=== PATIENT | male | born 1990 | race American Indian/Alaskan Native ===

== ENCOUNTER 2017-02-11 16:17 | Emergency (ER) | payer SELFPAY ==
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
[2017-02-11] MEDS ORDERED: ceFAZolin 2 GM in NACL 0.9% 100 ML IV ONE (19:00)
[2017-02-11] MEDS ORDERED: ZOFRAN IV ONE (19:00)
[2017-02-11] MEDS ORDERED: MORPHINE IV ONE ×2 (19:00→21:22)
[2017-02-11] MEDS ORDERED: TENIVAC IM ONE (19:00)
[2017-02-11] MEDS ORDERED: NACL 0.9% 1000 ML 1,000 ML IV ONE (19:05)
[2017-02-11] MEDS ORDERED: BOOSTRIX IM ONE (19:14)
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
[2017-02-11 22:22] VITALS: BP 136/77
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
== END 2017-02-11 22:22 | disposition home or self-care (01) ==
LOC: ED 16:17
DX: S02.2XXA Fracture of nasal bones, initial encounter for closed fracture (principal); F12.10 Cannabis abuse, uncomplicated; Y09 Assault by unspecified means; Y93.9 Activity, unspecified; Y99.9 Unspecified external cause status; Y92.488 Other paved roadways as the place of occurrence of the external cause
CPT/HCPCS: 70450; 70480; 71110; 90471; 90715; 96365; 96375; 96376; 99284; J0690; J2270; J2405; J7030; 90714

== ENCOUNTER 2018-01-14 09:46 | Outpatient (CLI) | payer OTHER ==
[2018-01-14 09:59] LABS: Hematocrit 30.8 % (35.5-45.6); Hemoglobin 11.1 gm/dl (11.8-15.2); Mean Corpuscular HGB Conc 36 % (32-34); Mean Corpuscular Hemoglobin 32 pg (28-32); Mean Corpuscular Volume 90 fl (84-94); Platelet Count 299 K/mm3 (140-440); Red Blood Count 3.44 M/mm3 (3.65-5.03)
[2018-01-14 10:00] LABS: Red Cell Distribution Width 20.8 % (13.2-15.2)
[2018-01-14 10:38] LABS: Anisocytosis 2+; Band Neutrophils # (Manual) 0.1 K/mm3; Basophils % (Manual) 0 % (0.0-1.8); Ovalocytes 1+; Poikilocytosis 2+; Sickle Cells 2+; Total Cells Counted 100
[2018-01-14 10:39] LABS: Large Platelets Rare; Target Cells 1+; Tear Drop Cells Rare
== END 2018-01-14 09:47 | disposition home or self-care (01) ==
LOC: LAB 09:46
PROVIDERS: ATTEND Internal Medicine
DX: J45.909 Unspecified asthma, uncomplicated (principal); D64.9 Anemia, unspecified; D57.1 Sickle-cell disease without crisis; R52 Pain, unspecified
CPT/HCPCS: 36415; 85007; 85025

== ENCOUNTER 2021-07-08 14:36 | Inpatient (IN) | payer SELFPAY ==
--- NOTE | 2021-07-08 15:38 | Emergency Department Report ---
ED General Adult HPI - General Chief complaint: Sickle Cell Crisis Stated complaint: CHEST PAIN SOB PUI?: No Time Seen by Provider: 07/08/21 14:55 Source: patient, RN notes reviewed Mode of arrival: Ambulatory Limitations: No Limitations - History of Present Illness Initial comments: The patient is a 31-year-old gentleman. He reports a history of sickle cell disease. The patient presents to the ER with 1 to 2 days of central and bilateral chest pain. It is intermittent. It increases with deep inspiration. Positive low-grade fever. No vomiting or diaphoresis. No travel, surgery, immobilization, leg pain or leg swelling. The patient reports that he feels like sickle cell pain is acting up as well. He reports leg pain, and lower back pain. Triggers include cold weather and change of seasons. Denies travel, surg andrae, immobilization. Does not have a personal family history of DVT/PE/CAD. Patient reports that his symptoms today are not similar to prior episodes of sickle cell pain in his chest. He reports he does have a history of acute chest, and does not feel like this is similar to his prior episode of acute chest syndrome. Reports that he has his gallbladder, and spleen. -: Gradual, hour(s) Location: chest Radiation: non-radiation Quality: aching Consistency: constant Improves with: medication, rest Worsens with: movement, other (Inspiration) - Related Data Previous Rx's Medication Instructions Recorded Last Taken Type Folic Acid [Folvite] 1 mg PO QDAY #30 tablet 01/02/14 Unknown Rx Oxycodone HCl/Acetaminophen 1 each PO Q6HR PRN #20 tablet 01/02/14 Unknown Rx [Percocet 7.5-325 mg] Amoxicillin [Amoxicillin TAB] 875 mg PO BID #20 tablet 02/11/17 Unknown Rx HYDROcodone/APAP 5-325 [[place] 1 each PO Q6HR PRN #12 tablet 02/11/17 Unknown Rx 5/325] Ibuprofen [Motrin 800 MG tab] 800 mg PO Q8HR PRN #30 tablet 02/11/17 Unknown Rx Allergies Allergy/AdvReac Type Severity Reaction Status Date / Time No Known Allergies Allergy Unverified 01/02/14 08:21 ED Review of Systems ROS: Stated complaint: CHEST PAIN SOB Other details as noted in HPI Constitutional: malaise. denies: fever, weakness Eyes: denies: eye discharge ENT: denies: epistaxis Respiratory: shortness of breath Cardiovascular: chest pain Gastrointestinal: denies: abdominal pain, nausea, vomiting, diarrhea Genitourinary: denies: urgency, dysuria Musculoskeletal: back pain, arthralgia, myalgia Neurological: weakness. denies: headache Psychiatric: anxiety Hematological/Lymphatic: denies: easy bleeding ED Past Medical Hx - Past Medical History Previous Medical History?: Yes Hx Sickle Cell Disease: Yes - Social History Smoking Status: Never Smoker Substance Use Type: Marijuana - Medications Home Medications: Home Medications Medication Instructions Recorded Confirmed Last Taken Type Folic Acid [Folvite] 1 mg PO QDAY #30 tablet 01/02/14 Unknown Rx Oxycodone HCl/Acetaminophen 1 each PO Q6HR PRN #20 tablet 01/02/14 Unknown Rx [Percocet 7.5-325 mg] Amoxicillin [Amoxicillin TAB] 875 mg PO BID #20 tablet 02/11/17 Unknown Rx HYDROcodone/APAP 5-325 [[place] 1 each PO Q6HR PRN #12 tablet 02/11/17 Unknown Rx 5/325] Ibuprofen [Motrin 800 MG tab] 800 mg PO Q8HR PRN #30 tablet 02/11/17 Unknown Rx ED Physical Exam - General Limitations: No Limitations General appearance: alert, in no apparent distress - Head Head exam: Present: atraumatic, normocephalic - Eye Eye exam: Present: normal appearance, EOMI. Absent: nystagmus - ENT ENT exam: Present: normal exam, normal orophraynx, mucous membranes moist, normal external ear exam - Neck Neck exam: Present: normal inspection, full ROM. Absent: tenderness, meningismus - Respiratory Respiratory exam: Present: normal lung sounds bilaterally, chest wall tenderness. Absent: respiratory distress, wheezes, rales, rhonchi, stridor, decreased breath sounds - Cardiovascular Cardiovascular Exam: Present: regular rate, normal rhythm, normal heart sounds. Absent: bradycardia, tachycardia, irregular rhythm, systolic murmur, diastolic murmur, rubs, gallop - GI/Abdominal GI/Abdominal exam: Present: soft. Absent: distended, tenderness, guarding, rebound, rigid, pulsatile mass - Rectal Rectal exam: Present: deferred - Extremities Exam Extremities exam: Present: normal inspection, full ROM, other (2+ pulses noted in the bilateral upper and lower extremities. The pelvis is stable. There is long bony tenderness. The muscular compartments are soft.). Absent: pedal edema, calf tenderness - Back Exam Back exam: Present: normal inspection, full ROM, muscle spasm, paraspinal tenderness. Absent: tenderness, CVA tenderness (R), CVA tenderness (L), vertebral tenderness - Neurological Exam Neurological exam: Present: alert, oriented X3, other (No facial droop. Tongue midline. Extraocular movements intact bilaterally. Facial sensation intact to light touch in V1, V2, V3 distribution bilaterally. 5 and a 5 strength in 4 ext remities. Sensation intact to light touch in 4 extremities.). Absent: motor sensory deficit - Psychiatric Psychiatric exam: Present: anxious - Skin Skin exam: Present: warm, dry, intact, normal color. Absent: rash ED Course Vital Signs 07/08/21 07/08/21 07/08/21 14:42 15:03 15:46 Temperature Pulse Rate 72 65 Respiratory 13 16 Rate Blood Pressure 119/73 O2 Sat by Pulse 98 96 97 Oximetry 07/08/21 07/08/21 07/08/21 16:00 17:30 18:30 Temperature Pulse Rate 73 83 84 Respiratory 12 14 24 Rate Blood Pressure 118/77 122/79 117/71 O2 Sat by Pulse 94 95 93 Oximetry 07/08/21 19:06 Temperature 99.1 F Pulse Rate Respiratory Rate Blood Pressure O2 Sat by Pulse Oximetry - Reevaluation(s) Reevaluation #1: 07/08/21 19:13 Differential diagnosis, including but not limited to: Sickle cell crisis, sickle cell anemia, pneumonia, acute chest syndrome, pu lmonary embolism Myocarditis, pericarditis, acute coronary syndrome Assessment and plan: 31-year-old gentleman with low-grade temperature, but no hypoxia, no focal pulmonary findings, with sickle cell pain, and chest pain. He has an elevated reticulocyte count. His D-dimer is elevated. History of sickle cell places patient at risk for pulmonary embolism. Troponin negative x1. Patient low risk for major adverse cardiac event as per heart score. He required multiple rounds of hydromorphone. He meets criteria for admission hospitalization secondary to sickle cell pain crisis, anemia, elevated reticulocyte count. We will obtain CT scan of the chest and rule out for pulmonary embolism versus pneumonia versus acute chest syndrome. Discussed with patient plan of care for admission. He is agreeable to this plan of care. 07/08/21 19:14 07/08/21 19:57 CT scan of the chest suggest right lower lobe atelectasis versus infiltrate. Patient ruling in for systemic inflammatory response syndrome, manifest by heart rate greater than 90, leukocytosis. Patient will be placed on nasal cannula oxygen, ceftriaxone, azithromycin, and fluids. Dr Castro to endorse admission to overnight hospitalist, Dr Ana Blackwell 07/08/21 20:00 ED Medical Decision Making - Lab Data Result diagrams: 07/08/21 15:49 07/08/21 15:49 Vital Signs 07/08/21 07/08/21 07/08/21 14:42 15:03 15:46 Temperature Pulse Rate 72 65 Respiratory 13 16 Rate Blood Pressure 119/73 O2 Sat by Pulse 98 96 97 Oximetry 07/08/21 07/08/21 07/08/21 16:00 17:30 18:30 Temperature Pulse Rate 73 83 84 Respiratory 12 14 24 Rate Blood Pressure 118/77 122/79 117/71 O2 Sat by Pulse 94 95 93 Oximetry 07/08/21 19:06 Temperature 99.1 F Pulse Rate Respiratory Rate Blood Pressure O2 Sat by Pulse Oximetry Lab Results 07/08/21 07/08/21 07/08/21 Range/Units 15:49 15:49 15:49 WBC 15.4 H (4.5-11.0) K/mm3 RBC 2.82 L (3.65-5.03) M/mm3 Hgb 9.2 L (11.8-15.2) gm/dl Hct 26.1 L (35.5-45.6) % MCV 93 (84-94) fl MCH 33 H (28-32) pg MCHC 35 H (32-34) % RDW 21.8 H (13.2-15.2) % Plt Count 383 (140-440) K/mm3 Lymph % (Auto) 21.3 (13.4-35.0) % [place] % (Auto) 9.7 H (0.0-7.3) % Eos % (Auto) 1.4 (0.0-4.3) % Baso % (Auto) 0.5 (0.0-1.8) % Lymph # (Auto) 3.3 (1.2-5.4) K/mm3 [place] # (Auto) 1.5 H (0.0-0.8) K/mm3 Eos # (Auto) 0.2 (0.0-0.4) K/mm3 Baso # (Auto) 0.1 (0.0-0.1) K/mm3 Seg Neutrophils % 67.1 (40.0-70.0) % Seg Neutrophils # 10.3 H (1.8-7.7) K/mm3 Percent Retic 9.76 H (0.78-2.58) % PT 13.7 (12.2-14.9) Sec. INR 0.95 (0.87-1.13) D-Dimer 1220.67 H (0-234) ng/mlDDU Sodium 140 (137-145) mmol/L Potassium 4.4 (3.6-5.0) mmol/L Chloride 102.7 (98-107) mmol/L Carbon Dioxide 27 (22-30) mmol/L Anion Gap 15 mmol/L BUN 6 L (9-20) mg/dL Creatinine 0.7 L (0.8-1.3) mg/dL Estimated GFR > 60 ml/min BUN/Creatinine Ratio 9 % Glucose 85 (75-100) mg/dL Calcium 9.1 (8.4-10.2) mg/dL Total Bilirubin 2.40 H (0.1-1.2) mg/dL Direct Bilirubin 0.5 H (0-0.2) mg/dL Indirect Bilirubin 1.9 mg/dL AST 32 (5-40) units/L ALT 41 (7-56) units/L Alkaline Phosphatase 79 (35-129) units/L Troponin T < 0.010 (0.00-0.029) ng/mL Total Protein 8.0 (6.3-8.2) g/dL Albumin 4.0 (3.9-5) g/dL Albumin/Globulin Ratio 1.0 % - EKG Data -: EKG Interpreted by Al EKG shows normal: sinus rhythm Rate: normal - EKG Data When compared to previous EKG there are: previous EKG unavailable 07/08/21 19:12 The EKG is interpreted at 15: 45 Sinus rhythm, rate 68 bpm. Normal axis, normal intervals, right bundle branch block, QTC 477 ms. This is an abnormal EKG. This is not a STEMI. There is no prior available for comparison. - Radiology Data Radiology results: pending, report reviewed, image reviewed [facility] [address] [id number] Cat Scan Report Signed Patient: LUL PUENTE MR#: [id number] : 1990 Acct:[id number] Age/Sex: 31 / M ADM Date: 07/08/21 Loc: ED Attending Dr: Ordering Physician: HILDA RODRIGUES MD Date of Service: 07/08/21 Procedure(s): CT angio chest Accession Number(s): [id number] cc: HILDA RODRIGUES MD CTA CHEST WITH CONTRAST INDICATION / CLINICAL INFORMATION: Acute chest pain.. TECHNIQUE: Axial CT images were obtained through the chest after injection of IV contrast. 3 plane MIP and/or 3D reconstructions were produced. All CT scans at this location are performed using CT dose reduction for ALARA by means of automated exposure control. COMPARISON: None available. FINDINGS: PULMONARY ARTERIES: No pulmonary emboli. THORACIC AORTA: No significant abnormality. HEART: No significant abnormality. CORONARY ARTERY CALCIFICATION: None. MEDIASTINUM / RILEY: There is a cyst in the left upper mediastinum. PLEURA: No pleural effusion. No pneumothorax. LUNGS: There are some minimal peripheral parenchymal opacity in the right lower lobe which could represent atelectasis or atypical pneumonia ADDITIONAL FINDINGS: None. UPPER ABDOMEN: No acute findings. SKELETAL STRUCTURES: No significant osseous abnormality. IMPRESSION: 1. No CT evidence for pulmonary embolism. 2. There is minimal airspace opacity in the right lower lobe which could represent atelectasis or atypical pneumonia. Signer Name: Talha Durand MD Signed: 07/08/2021 7:48 PM Workstation Name: [id number] Transcribed By: Dictated By: Talha Durand MD Electronically Authenticated By: Talha Durand MD Signed Date/Time: 07/08/211947 DD/ 41 Critical care attestation.: If time is entered above; I have spent that time in minutes in the direct care of this critically ill patient, excluding procedure time. ED Disposition Clinical Impression: Acute chest pain, Acute sickle cell crisis, Pulmonary infiltrate Disposition: 09 ADMITTED INPATIENT Is pt being admited?: Yes Does the pt Need Aspirin: No Condition: Good Instructions: Chest Pain (ED) Referrals: PRIMARY CARE,MD [Primary Care Provider] - 3-5 Days Heart Score - HEART Score History: Slightly suspicious EKG: Non-specific Age: < 45 Risk factors: 1-2 risk factors Troponin: < normal limit HEART Score: 2 - EKG Read Time Time EKG Completed: 15:45 EKG Read Time: 15:45 - Critical Actions Critical Actions: 0-3 pts:0.9-1.7%risk of adverse cardiac event.Candidate for discharge
[2021-07-08] MEDS ORDERED: diphenhydrAMINE 25 MG CAP PO ONE (15:39)
[2021-07-08] MEDS ORDERED: HYDROmorphone 1 MG/1 ML INJ IV ONE ×3 (15:39→18:21)
[2021-07-08] MEDS ORDERED: ONDANSETRON 4 MG/2 ML INJ IV ONE (15:39)
[2021-07-08] MEDS ORDERED: LACTATED RINGERS 1,000 ML IV ONE (15:39)
[2021-07-08 16:14] LABS: Basophils # (Auto) 0.1 K/mm3 (0.0-0.1); Basophils % (Auto) 0.5 % (0.0-1.8); Eosinophils # (Auto) 0.2 K/mm3 (0.0-0.4); Eosinophils % (Auto) 1.4 % (0.0-4.3); Hematocrit 26.1 % (35.5-45.6); Hemoglobin 9.2 gm/dl (11.8-15.2); Lymphocytes # (Auto) 3.3 K/mm3 (1.2-5.4); Lymphocytes % (Auto) 21.3 % (13.4-35.0); Mean Corpuscular HGB Conc 35 % (32-34); Mean Corpuscular Volume 93 fl (84-94); Monocytes # (Auto) 1.5 K/mm3 (0.0-0.8); Monocytes % (Auto) 9.7 % (0.0-7.3); Platelet Count 383 K/mm3 (140-440); Red Blood Count 2.82 M/mm3 (3.65-5.03)
[2021-07-08 16:19] LABS: Red Cell Distribution Width 21.8 % (13.2-15.2)
[2021-07-08 16:22] LABS: INR 0.95 (0.87-1.13)
[2021-07-08 16:31] LABS: Alanine Aminotransferase 41 units/L (7-56); Bilirubin,Direct 0.5 mg/dL (0-0.2); Blood Urea Nitrogen 6 mg/dL (9-20); Calcium 9.1 mg/dL (8.4-10.2); Hemolysis Index 15
[2021-07-08 16:34] LABS: BUN/Creatinine Ratio 9
--- NOTE | 2021-07-08 19:53 | Cat Scan Report ---
CTA CHEST WITH CONTRAST INDICATION / CLINICAL INFORMATION: Acute chest pain.. TECHNIQUE: Axial CT images were obtained through the chest after injection of IV contrast. 3 plane WI P and/or 3D reconstructions were produced. All CT scans at this location are performed using CT dose reduction for ALARA by means of automated exposure control. COMPARISON: None available. FINDINGS: PULMONARY ARTERIES: No pulmonary emboli. THORACIC AORTA: No significant abnormality. HEART: No significant abnormality. CORONARY ARTERY CALCIFICATION: None. MEDIASTINUM / RILEY: There is a cyst in the left upper mediastinum. PLEURA: No pleural effusion. No pneumothorax. LUNGS: There are some minimal peripheral parenchymal opacity in the right lower lobe which could repr esent atelectasis or atypical pneumonia ADDITIONAL FINDINGS: None. UPPER ABDOMEN: No acute findings. SKELETAL STRUCTURES: No significant osseous abnormality. IMPRESSION: 1. No CT evidence for pulmonary embolism. 2. There is minimal airspace opacity in the right lower lobe which could represent atelectasis or aty pical pneumonia. Signer Name: Talha Durand MD Signed: 07/08/2021 7:48 PM Workstation Name: [id number]
[2021-07-08] MEDS ORDERED: ACETAMINOPHEN 325 MG TAB PO ONE (19:55)
[2021-07-08] MEDS ORDERED: AZITHROMYCIN/NS 500 MG/250 ML 500 MG/250 ML BAG IV ONE (19:55)
[2021-07-08] MEDS ORDERED: cefTRIAXone/NS 1 GM/50 ML 1 GM/50 ML BAG IV ONE (19:55)
[2021-07-08] MEDS ORDERED: SODIUM CHLORIDE 0.9% 1000 ML 1,000 ML IV ONE (19:56)
[2021-07-08] MEDS ORDERED: ASPIRIN 81 MG TAB CHEW PO ONE (20:02)
--- NOTE | 2021-07-08 20:15 | XRay Report ---
CHEST 1 VIEW 07/08/2021 7:46 PM INDICATION / CLINICAL INFORMATION: Acute chest pain. COMPARISON: None available. FINDINGS: SUPPORT DEVICES: None. HEART / MEDIASTINUM: The heart size and pulmonary vasculature are normal for technique. The aorta is normal in caliber. LUNGS / PLEURA: No significant pulmonary or pleural abnormality. No pneumothorax. ADDITIONAL FINDINGS: No significant additional findings. IMPRESSION: No acute findings. Signer Name: Jass Stein MD Signed: 07/08/2021 8:11 PM Workstation Name: [id number]
[2021-07-08] MEDS ORDERED: NALOXONE 0.4 MG/1 ML INJ IV PRN (20:32)
[2021-07-08] MEDS ORDERED: MAGNESIUM HYDROXIDE (MOM) ORAL LIQD UDC PO PRN (20:32)
[2021-07-08] MEDS ORDERED: ONDANSETRON 4 MG/2 ML INJ IV PRN ×2 (20:32→20:36)
[2021-07-08] MEDS ORDERED: ALUM-MAG HYDROXIDE-SIMETHICONE 200-200-20MG/5ML ORAL LIQD 30 ML PO PRN (20:32)
[2021-07-08] MEDS ORDERED: METOCLOPRAMIDE 10 MG/2 ML INJ IV PRN (20:32)
[2021-07-08] MEDS ORDERED: oxyCODONE /ACETAMINOPHEN 5-325MG TAB PO PRN (20:32)
[2021-07-08] MEDS ORDERED: SENNOSIDES 8.6 MG TAB PO PRN (20:32)
[2021-07-08] MEDS ORDERED: IBUPROFEN 600 MG TAB PO PRN (20:36)
[2021-07-08] MEDS ORDERED: ACETAMINOPHEN 325 MG TAB PO PRN (20:36)
--- NOTE | 2021-07-08 20:41 | History and Physical Report ---
History of Present Illness Date of examination: 07/08/21 Date of admission: 07/08/21 Chief complaint: Chest pain History of present illness: Male patient seen in ED at bedside. Patient has a past medical history of sickle cell disease. He presented to the emergency room and sickle cell crisis. At the time of assessment patient reports pain level of 9/10. He complains of bilateral chest pain shoulder pain bilateral leg and back pain. Patient admits tobacco use but denies illicit drug use. Reviewed lab values and radiology report. CT of the chest done to rule out PECT negative for pulmonary emboli. There is a minimal airspace opacity likely secondary to pneumonia. chest x-ray done no acute finding. Past History Past Medical History: No medical history Past Surgical History: No surgical history Social history: lives with family, smoking Family history: no significant family history Medications and Allergies Allergies Allergy/AdvReac Type Severity Reaction Status Date / Time No Known Allergies Allergy Unverified 01/02/14 08:21 Home Medications Medication Instructions Recorded Confirmed Last Taken Type Folic Acid [Folvite] 1 mg PO QDAY #30 tablet 01/02/14 Unknown Rx Oxycodone HCl/Acetaminophen 1 each PO Q6HR PRN #20 tablet 01/02/14 Unknown Rx [Percocet 7.5-325 mg] Amoxicillin [Amoxicillin TAB] 875 mg PO BID #20 tablet 02/11/17 Unknown Rx HYDROcodone/APAP 5-325 [[place] 1 each PO Q6HR PRN #12 tablet 02/11/17 Unknown Rx 5/325] Ibuprofen [Motrin 800 MG tab] 800 mg PO Q8HR PRN #30 tablet 02/11/17 Unknown Rx Active Meds: Active Medications Azithromycin (Zithromax/Ns) 500 mg in 250 mls @ 250 mls/hr IV ONCE ONE; Protocol Stop: 07/08/21 20:54 Sodium Chloride (Nacl 0.9% 1000 Ml) 1,000 mls @ 999 mls/hr IV BOLUS ONE Stop: 07/08/21 20:56 Review of Systems Cardiovascular: chest pain Gastrointestinal: no abdominal pain, no melena Genitourinary Male: no hematuria Rectal: no hemorrhoids Musculoskeletal: low back pain, leg numbness/tingling Integumentary: no rash, no pruritis, no redness Hematologic/Lymphatic: no easy bruising, no easy bleeding, no lymphadenopathy, no lymphedema Allergic/Immunologic: no urticaria Exam - Constitutional Vitals: Temp Pulse Resp BP Pulse Ox 99.1 F 84 24 117/71 93 07/08/21 19:06 07/08/21 18:30 07/08/21 18:30 07/08/21 18:30 07/08/21 18:30 General appearance: Present: mild distress, well-nourished - EENT Eyes: Present: PERRL ENT: hearing intact, clear oral mucosa - Neck Neck: Present: supple, normal ROM - Respiratory Respiratory effort: normal Respiratory: bilateral: CTA - Cardiovascular Heart Sounds: Present: S1 & S2. Absent: rub, click - Extremities Extremities: pulses symmetrical, No edema Peripheral Pulses: within normal limits - Abdominal General gastrointestinal: Present: soft, non-tender, non-distended, normal bowel sounds Male genitourinary: Present: normal - Integumentary Integumentary: Present: clear, warm, dry - Musculoskeletal Musculoskeletal: gait normal, strength equal bilaterally - Psychiatric Psychiatric: appropriate mood/affect, intact judgment & insight, cooperative - Neurologic Neurologic: CNII-XII intact, moves all extremities - Allied Health Allied health notes reviewed: nursing HEART Score - HEART Score EKG: Non-specific Age: < 45 Risk factors: 1-2 risk factors Troponin: Troponin T < 0.010 ng/mL (0.00-0.029) 07/08/21 15:49 Troponin: < normal limit - Critical Actions Critical Actions: 0-3 pts:0.9-1.7%risk of adverse cardiac event.Candidate for discharge Results - Labs CBC & Chem 7: 07/08/21 15:49 07/08/21 15:49 Labs: Abnormal lab results 07/08/21 07/08/21 07/08/21 Range/Units 15:49 15:49 15:49 WBC 15.4 H (4.5-11.0) K/mm3 RBC 2.82 L (3.65-5.03) M/mm3 Hgb 9.2 L (11.8-15.2) gm/dl Hct 26.1 L (35.5-45.6) % MCH 33 H (28-32) pg MCHC 35 H (32-34) % RDW 21.8 H (13.2-15.2) % [place] % (Auto) 9.7 H (0.0-7.3) % [place] # (Auto) 1.5 H (0.0-0.8) K/mm3 Seg Neutrophils # 10.3 H (1.8-7.7) K/mm3 Percent Retic 9.76 H (0.78-2.58) % D-Dimer 1220.67 H (0-234) ng/mlDDU BUN 6 L (9-20) mg/dL Creatinine 0.7 L (0.8-1.3) mg/dL Total Bilirubin 2.40 H (0.1-1.2) mg/dL Direct Bilirubin 0.5 H (0-0.2) mg/dL Assessment and Plan - Patient Problems (1) Acute chest pain Current Visit: Yes Status: Acute Plan to address problem: CT of the chest donenegative for pulmonary embolism Pain management as needed (2) Acute sickle cell crisis Current Visit: Yes Status: Acute Plan to address problem: Continue IV hydration (3) Pulmonary infiltrate Current Visit: Yes Status: Acute Plan to address problem: CT of the chest positive for lung opacity right lower lobe Continue empiric antibiotics (4) Leukocytosis (leucocytosis) Current Visit: Yes Status: Acute Plan to address problem: Likely reactive/pneumonia Blood culture x2 and continue empiric antibiotics Monitor WBC. (5) Anemia Current Visit: Yes Status: Acute Plan to address problem: Continue folic acid and multivitamin Monitor H&H-we will transfuse packed red blood cells if H&H is less than 7
[2021-07-08] MEDS: FAMOTIDINE 20 MG/2 ML INJ IV SCH (22:55)
[2021-07-08] MEDS: FOLIC ACID 1 MG TAB PO SCH (22:57)
[2021-07-08] MEDS: MORPHINE 4 MG/1 ML INJ IV PRN (23:09)
[2021-07-08] MEDS: SODIUM CHLORIDE 0.9% 1000 ML 1,000 ML IV SCH (23:09)
[2021-07-09] MEDS: MORPHINE 2 MG/1 ML INJ IV PRN ×4 (02:52→17:51)
[2021-07-09] MEDS ORDERED: cefTRIAXone/NS 2 GM/100 ML 2 GM/100 ML BAG IV SCH (08:00)
[2021-07-09 08:06] LABS: Basophils # (Auto) 0.1 K/mm3 (0.0-0.1); Basophils % (Auto) 0.8 % (0.0-1.8); Eosinophils # (Auto) 0.1 K/mm3 (0.0-0.4); Eosinophils % (Auto) 0.4 % (0.0-4.3); Hematocrit 25.5 % (35.5-45.6); Hemoglobin 8.7 gm/dl (11.8-15.2); Lymphocytes # (Auto) 2.1 K/mm3 (1.2-5.4); Lymphocytes % (Auto) 12.8 % (13.4-35.0); Mean Corpuscular HGB Conc 34 % (32-34); Mean Corpuscular Volume 93 fl (84-94); Monocytes # (Auto) 1.6 K/mm3 (0.0-0.8); Monocytes % (Auto) 9.9 % (0.0-7.3); Platelet Count 382 K/mm3 (140-440); Red Blood Count 2.74 M/mm3 (3.65-5.03)
[2021-07-09 08:07] LABS: Red Cell Distribution Width 20.7 % (13.2-15.2)
[2021-07-09 08:32] LABS: Alanine Aminotransferase 32 units/L (7-56); Albumin 3.9 g/dL (3.9-5); Blood Urea Nitrogen 4 mg/dL (9-20); Calcium 8.8 mg/dL (8.4-10.2); Hemolysis Index 12
[2021-07-09 08:34] LABS: BUN/Creatinine Ratio 6
[2021-07-09] MEDS: FOLIC ACID 1 MG TAB PO SCH (09:42)
[2021-07-09] MEDS: FAMOTIDINE 20 MG/2 ML INJ IV SCH ×2 (09:42→21:38)
[2021-07-09] MEDS: AZITHROMYCIN/NS 500 MG/250 ML 500 MG/250 ML BAG IV SCH (09:42)
[2021-07-09] MEDS: MULTIVITAMINS ,THERAPEUTIC TAB PO SCH (09:42)
[2021-07-09] MEDS: cefTRIAXone/NS 2 GM/100 ML 2 GM/100 ML BAG IV SCH (09:42)
--- NOTE | 2021-07-09 13:14 | Progress Note ---
Assessment and Plan Assessment and plan: -- atypical chest pain Current Visit: Yes Status: Acute CT of the chest donenegative for pulmonary embolism Pain management as needed -- Acute sickle cell crisis Current Visit: Yes Status: Acute Continue IV hydration Oxygen titrate O2 sats to more than 90% Pain medications, IV fluids and supportive care Reticulocyte count 9.7 --PUI/high suspicion for COVID-19[unvaccinated] Current Visit: Yes Status: Acute [place] PCR test done, pending report --Atypical pneumonia Current Visit: Yes Status: Acute Continue empiric antibiotics Supportive care with 2 L NC oxygen and IV fluids COVID-19 test is negative --Leukocytosis (leucocytosis) Current Visit: Yes Status: Acute Probably due to pneumonia, treat the underlying cause Follow cultures --Sickle cell anemia; Current Visit: Yes Status: Acute Monitor H&H, transfuse PRBC as needed --DVT prophylaxis Subcu Lovenox We will closely monitor the patient and adjust the management as needed Plan of care reviewed with the patient and his nurse Possible discharge in 1 to 2 days if stable 07/09/2021 ; follow [place] PCR test, follow clinically Home O2 evaluation History Interval history: I have seen and examined the patient at the bedside Patient's chart and medications reviewed Patient complains of back and lower extremity pain Admitted with sickle cell painful crisis Afebrile Hospitalist Physical - Constitutional Vitals: Temp Pulse Resp BP Pulse Ox 98.3 F 77 20 119/75 98 07/09/21 04:39 07/09/21 04:39 07/09/21 08:49 07/09/21 04:39 07/09/21 09:55 General appearance: Present: mild distress, well-nourished - EENT Eyes: Present: PERRL, EOM intact - Neck Neck: Present: supple, normal ROM - Respiratory Respiratory effort: normal Respiratory: bilateral: diminished, rhonchi, negative: rales, wheezing - Cardiovascular Rhythm: regular Heart Sounds: Present: S1 & S2 - Extremities Extremities: no ischemia, No edema - Abdominal General gastrointestinal: soft, non-tender, non-distended, normal bowel sounds - Integumentary Integumentary: Present: clear, warm - Psychiatric Psychiatric: appropriate mood/affect, cooperative - Neurologic Neurologic: CNII-XII intact, moves all extremities HEART Score - HEART Score EKG: Non-specific Age: < 45 Risk factors: 1-2 risk factors Troponin: Troponin T < 0.010 ng/mL (0.00-0.029) 07/08/21 15:49 Troponin: < normal limit - Critical Actions Critical Actions: 0-3 pts:0.9-1.7%risk of adverse cardiac event.Candidate for discharge Results - Labs CBC & Chem 7: 07/09/21 06:50 07/09/21 07:30 Labs: Laboratory Last Values WBC 16.4 K/mm3 (4.5-11.0) H 07/09/21 06:50 RBC 2.74 M/mm3 (3.65-5.03) L 07/09/21 06:50 Hgb 8.7 gm/dl (11.8-15.2) L 07/09/21 06:50 Hct 25.5 % (35.5-45.6) L 07/09/21 06:50 MCV 93 fl (84-94) 07/09/21 06:50 MCH 32 pg (28-32) 07/09/21 06:50 MCHC 34 % (32-34) 07/09/21 06:50 RDW 20.7 % (13.2-15.2) H 07/09/21 06:50 Plt Count 382 K/mm3 (140-440) 07/09/21 06:50 Lymph % (Auto) 12.8 % (13.4-35.0) L 07/09/21 06:50 [place] % (Auto) 9.9 % (0.0-7.3) H 07/09/21 06:50 Eos % (Auto) 0.4 % (0.0-4.3) 07/09/21 06:50 Baso % (Auto) 0.8 % (0.0-1.8) 07/09/21 06:50 Lymph # (Auto) 2.1 K/mm3 (1.2-5.4) 07/09/21 06:50 [place] # (Auto) 1.6 K/mm3 (0.0-0.8) H 07/09/21 06:50 Eos # (Auto) 0.1 K/mm3 (0.0-0.4) 07/09/21 06:50 Baso # (Auto) 0.1 K/mm3 (0.0-0.1) 07/09/21 06:50 Seg Neutrophils % 76.1 % (40.0-70.0) H 07/09/21 06:50 Seg Neutrophils # 12.5 K/mm3 (1.8-7.7) H 07/09/21 06:50 Percent Retic 9.76 % (0.78-2.58) H 07/08/21 15:49 PT 13.7 Sec. (12.2-14.9) 07/08/21 15:49 INR 0.95 (0.87-1.13) 07/08/21 15:49 D-Dimer 1220.67 ng/mlDDU (0-234) H 07/08/21 15:49 Sodium 137 mmol/L (137-145) 07/09/21 07:30 Potassium 3.9 mmol/L (3.6-5.0) 07/09/21 07:30 Chloride 100.0 mmol/L (98-107) 07/09/21 07:30 Carbon Dioxide 25 mmol/L (22-30) 07/09/21 07:30 Anion Gap 16 mmol/L 07/09/21 07:30 BUN 4 mg/dL (9-20) L 07/09/21 07:30 Creatinine 0.7 mg/dL (0.8-1.3) L 07/09/21 07:30 Estimated GFR > 60 ml/min 07/09/21 07:30 BUN/Creatinine Ratio 6 % 07/09/21 07:30 Glucose 103 mg/dL (75-100) H 07/09/21 07:30 Hemoglobin A1c 3.4 % (4-6) L 07/08/21 15:49 Lactic Acid 0.80 mmol/L (0.7-2.0) 07/08/21 20:25 Calcium 8.8 mg/dL (8.4-10.2) 07/09/21 07:30 Total Bilirubin 2.40 mg/dL (0.1-1.2) H 07/09/21 07:30 Direct Bilirubin 0.5 mg/dL (0-0.2) H 07/08/21 15:49 Indirect Bilirubin 1.9 mg/dL 07/08/21 15:49 AST 28 units/L (5-40) 07/09/21 07:30 ALT 32 units/L (7-56) 07/09/21 07:30 Alkaline Phosphatase 77 units/L (35-129) 07/09/21 07:30 Total Creatine Kinase 70 units/L (55-170) 07/08/21 19:16 Troponin T < 0.010 ng/mL (0.00-0.029) 07/08/21 15:49 Total Protein 7.7 g/dL (6.3-8.2) 07/09/21 07:30 Albumin 3.9 g/dL (3.9-5) 07/09/21 07:30 Albumin/Globulin Ratio 1.0 % 07/09/21 07:30 Microbiology: Microbiology 07/08/21 20:25 Peripheral/Venous Blood Culture - Preliminary Culture in Progress 07/08/21 20:25 Peripheral/Venous Blood Culture - Preliminary Culture in Progress Alanis/IV: Voiding Method Toilet Active Medications - Current Medications Current Medications: Generic Name Dose Route Start Last Admin Trade Name Freq PRN Reason Stop Dose Admin Acetaminophen 650 mg 07/08/21 20:36 Acetaminophen 325 Mg Tab PO Q4H PRN Pain MILD(1-3)/Fever >100.5/MOSLEY Al Hydrox/Mg Hydrox/Simethicone 30 ml 07/08/21 20:32 Alum-Mag Hydroxide-Simethicone 595-632-14qz/5ml Oral Liqd 30 Ml PO Q4H PRN Indigestion Famotidine 20 mg 07/08/21 22:00 07/09/21 09:42 Famotidine 20 Mg/2 Ml Inj IV 20 mg BID PANCHO Administration Folic Acid 1 mg 07/08/21 21:00 07/09/21 09:42 Folic Acid 1 Mg Tab PO 1 mg QDAY PANCHO Administration Sodium Chloride 1,000 mls @ 75 mls/hr 07/08/21 20:45 07/08/21 23:09 Nacl 0.9% 1000 Ml IV 75 mls/hr DIRECT PANCHO Administration Azithromycin 500 mg in 250 mls @ 250 mls/hr 07/09/21 10:00 07/09/21 09:42 Zithromax/Ns IV 07/12/21 10:59 250 mls/hr Q24H PANCHO Administration Protocol Ceftriaxone Sodium 2 gm in 100 mls @ 200 mls/hr 07/09/21 10:00 07/09/21 09:42 Rocephin/Ns 2 Gm/100 Ml IV 07/12/21 10:29 200 mls/hr Q24H PANCHO Administration Protocol Ibuprofen 600 mg 07/08/21 20:36 Ibuprofen 600 Mg Tab PO Q6H PRN Pain, Mild (1-3) Magnesium Hydroxide 30 ml 07/08/21 20:32 Magnesium Hydroxide (Mom) Oral Liqd Udc PO Q4H PRN Constipation Metoclopramide HCl 10 mg 07/08/21 20:32 Metoclopramide 10 Mg/2 Ml Inj IV Q6H PRN Nausea And Vomiting Morphine Sulfate 2 mg 07/08/21 20:32 07/09/21 08:49 Morphine 2 Mg/1 Ml Inj IV 2 mg Q4H PRN Administration Pain, Moderate (4-6) Morphine Sulfate 4 mg 07/08/21 20:32 07/08/21 23:09 Morphine 4 Mg/1 Ml Inj IV 4 mg Q4H PRN Administration Pain , Severe (7-10) Multivitamins 1 each 07/09/21 10:00 07/09/21 09:42 Multivitamins ,Therapeutic Tab PO 1 each QDAY PANCHO Administration Naloxone HCl 0.1 mg 07/08/21 20:32 Naloxone 0.4 Mg/1 Ml Inj IV Q2MIN PRN Res Rate </= 8 or 02 SAT < 92% Ondansetron HCl 4 mg 07/08/21 20:36 Ondansetron 4 Mg/2 Ml Inj IV Q8H PRN Nausea And Vomiting Oxycodone/Acetaminophen 1 tab 07/08/21 20:32 Oxycodone /Acetaminophen 5-325mg Tab PO Q6H PRN Pain, Moderate (4-6) Senna 8.6 mg 07/08/21 20:32 Sennosides 8.6 Mg Tab PO Q12HR PRN Constipation Sodium Chloride 10 ml 07/08/21 22:00 07/09/21 09:42 Sodium Chloride 0.9% 10 Ml Flush Syringe IV 10 ml BID PANCHO Administration Sodium Chloride 10 ml 07/08/21 22:00 07/09/21 09:43 Sodium Chloride 0.9% 10 Ml Flush Syringe IV 10 ml BID PANCHO Administration Sodium Chloride 10 ml 07/08/21 20:36 Sodium Chloride 0.9% 10 Ml Flush Syringe IV PRN PRN LINE FLUSH
[2021-07-09] MEDS: SODIUM CHLORIDE 0.9% 1000 ML 1,000 ML IV SCH (17:51)
[2021-07-09] MEDS: MORPHINE 4 MG/1 ML INJ IV PRN (21:37)
[2021-07-09] MEDS: ENOXAPARIN 40 MG/0.4 ML INJ SUB-Q SCH (21:38)
[2021-07-10] MEDS: SODIUM CHLORIDE 0.9% 1000 ML 1,000 ML IV SCH ×2 (03:45→14:25)
[2021-07-10] MEDS: FOLIC ACID 1 MG TAB PO SCH (09:24)
[2021-07-10] MEDS: MULTIVITAMINS ,THERAPEUTIC TAB PO SCH (09:24)
[2021-07-10] MEDS: FAMOTIDINE 20 MG TAB PO SCH ×2 (09:24→22:07)
[2021-07-10] MEDS: AZITHROMYCIN/NS 500 MG/250 ML 500 MG/250 ML BAG IV SCH (09:34)
[2021-07-10] MEDS: cefTRIAXone/NS 2 GM/100 ML 2 GM/100 ML BAG IV SCH (09:34)
[2021-07-10] MEDS: MORPHINE 2 MG/1 ML INJ IV PRN ×3 (09:35→18:52)
--- NOTE | 2021-07-10 18:52 | Progress Note ---
Assessment and Plan Assessment and plan: [place] PCR test is negative; No COVID-19 infection -- atypical chest pain Current Visit: Yes Status: Acute CT of the chest donenegative for pulmonary embolism Pain management as needed -- Acute sickle cell crisis Current Visit: Yes Status: Acute Continue IV hydration Oxygen titrate O2 sats to more than 90% Pain medications, IV fluids and supportive care Reticulocyte count 9.7 --PUI/COVID-19 test negative Current Visit: Yes Status: Acute [place] PCR test negative --Atypical pneumonia[RLL pneumonia on CTA] Current Visit: Yes Status: Acute Continue empiric antibiotics Supportive care with 2 L NC oxygen and IV fluids COVID-19 test is negative --Leukocytosis (leucocytosis) Current Visit: Yes Status: Acute Probably due to pneumonia, treat the underlying cause Follow cultures --Sickle cell anemia; Current Visit: Yes Status: Acute Monitor H&H, transfuse PRBC as needed --DVT prophylaxis Subcu Lovenox We will closely monitor the patient and adjust the management as needed Plan of care reviewed with the patient and his nurse Possible discharge in 1 to 2 days if stable 07/09/2021 ; follow [place] PCR test, follow clinically Home O2 evaluation 07/10/2021; [place] PCR test is negative On antibiotics for right lower lobe pneumonia on CTA Check lower extremity venous Doppler, possible discharge in 1 to 2 days if stable O2 evaluation prior to discharge History Interval history: I have seen and examined the patient at the bedside Patient's chart and medications reviewed Patient feels slightly better COVID-19 test negative Receiving antibiotics for right lower lobe pneumonia Hospitalist Physical - Constitutional Vitals: Temp Pulse Resp BP Pulse Ox 98.3 F 87 18 113/67 95 07/10/21 12:22 07/10/21 12:22 07/10/21 12:22 07/10/21 12:22 07/10/21 12:22 General appearance: Present: mild distress, well-nourished - EENT Eyes: Present: PERRL, EOM intact - Neck Neck: Present: supple, normal ROM - Respiratory Respiratory effort: normal Respiratory: bilateral: diminished, negative: rales, rhonchi, wheezing - Cardiovascular Rhythm: regular Heart Sounds: Present: S1 & S2 - Extremities Extremities: no ischemia, No edema - Abdominal General gastrointestinal: soft, non-tender, non-distended, normal bowel sounds - Integumentary Integumentary: Present: clear, warm - Psychiatric Psychiatric: appropriate mood/affect, cooperative - Neurologic Neurologic: moves all extremities HEART Score - HEART Score EKG: Non-specific Age: < 45 Risk factors: 1-2 risk factors Troponin: Troponin T < 0.010 ng/mL (0.00-0.029) 07/08/21 15:49 Troponin: < normal limit - Critical Actions Critical Actions: 0-3 pts:0.9-1.7%risk of adverse cardiac event.Candidate for discharge Results - Labs CBC & Chem 7: 07/09/21 06:50 07/09/21 07:30 Labs: Laboratory Last Values WBC 16.4 K/mm3 (4.5-11.0) H 07/09/21 06:50 RBC 2.74 M/mm3 (3.65-5.03) L 07/09/21 06:50 Hgb 8.7 gm/dl (11.8-15.2) L 07/09/21 06:50 Hct 25.5 % (35.5-45.6) L 07/09/21 06:50 MCV 93 fl (84-94) 07/09/21 06:50 MCH 32 pg (28-32) 07/09/21 06:50 MCHC 34 % (32-34) 07/09/21 06:50 RDW 20.7 % (13.2-15.2) H 07/09/21 06:50 Plt Count 382 K/mm3 (140-440) 07/09/21 06:50 Lymph % (Auto) 12.8 % (13.4-35.0) L 07/09/21 06:50 [place] % (Auto) 9.9 % (0.0-7.3) H 07/09/21 06:50 Eos % (Auto) 0.4 % (0.0-4.3) 07/09/21 06:50 Baso % (Auto) 0.8 % (0.0-1.8) 07/09/21 06:50 Lymph # (Auto) 2.1 K/mm3 (1.2-5.4) 07/09/21 06:50 [place] # (Auto) 1.6 K/mm3 (0.0-0.8) H 07/09/21 06:50 Eos # (Auto) 0.1 K/mm3 (0.0-0.4) 07/09/21 06:50 Baso # (Auto) 0.1 K/mm3 (0.0-0.1) 07/09/21 06:50 Seg Neutrophils % 76.1 % (40.0-70.0) H 07/09/21 06:50 Seg Neutrophils # 12.5 K/mm3 (1.8-7.7) H 07/09/21 06:50 Percent Retic 9.76 % (0.78-2.58) H 07/08/21 15:49 PT 13.7 Sec. (12.2-14.9) 07/08/21 15:49 INR 0.95 (0.87-1.13) 07/08/21 15:49 D-Dimer 1220.67 ng/mlDDU (0-234) H 07/08/21 15:49 Sodium 137 mmol/L (137-145) 07/09/21 07:30 Potassium 3.9 mmol/L (3.6-5.0) 07/09/21 07:30 Chloride 100.0 mmol/L (98-107) 07/09/21 07:30 Carbon Dioxide 25 mmol/L (22-30) 07/09/21 07:30 Anion Gap 16 mmol/L 07/09/21 07:30 BUN 4 mg/dL (9-20) L 07/09/21 07:30 Creatinine 0.7 mg/dL (0.8-1.3) L 07/09/21 07:30 Estimated GFR > 60 ml/min 07/09/21 07:30 BUN/Creatinine Ratio 6 % 07/09/21 07:30 Glucose 103 mg/dL (75-100) H 07/09/21 07:30 Hemoglobin A1c 3.4 % (4-6) L 07/08/21 15:49 Lactic Acid 0.80 mmol/L (0.7-2.0) 07/08/21 20:25 Calcium 8.8 mg/dL (8.4-10.2) 07/09/21 07:30 Total Bilirubin 2.40 mg/dL (0.1-1.2) H 07/09/21 07:30 Direct Bilirubin 0.5 mg/dL (0-0.2) H 07/08/21 15:49 Indirect Bilirubin 1.9 mg/dL 07/08/21 15:49 AST 28 units/L (5-40) 07/09/21 07:30 ALT 32 units/L (7-56) 07/09/21 07:30 Alkaline Phosphatase 77 units/L (35-129) 07/09/21 07:30 Total Creatine Kinase 70 units/L (55-170) 07/08/21 19:16 Troponin T < 0.010 ng/mL (0.00-0.029) 07/08/21 15:49 Total Protein 7.7 g/dL (6.3-8.2) 07/09/21 07:30 Albumin 3.9 g/dL (3.9-5) 07/09/21 07:30 Albumin/Globulin Ratio 1.0 % 07/09/21 07:30 Coronavirus (PCR) Negative (Negative) 07/09/21 Unknown Microbiology: Microbiology 07/08/21 20:25 Peripheral/Venous Blood Culture - Preliminary NO GROWTH AFTER 24 HOURS 07/08/21 20:25 Peripheral/Venous Blood Culture - Preliminary NO GROWTH AFTER 24 HOURS Alanis/IV: Voiding Method Toilet Active Medications - Current Medications Current Medications: Generic Name Dose Route Start Last Admin Trade Name Freq PRN Reason Stop Dose Admin Acetaminophen 650 mg 07/08/21 20:36 Acetaminophen 325 Mg Tab PO Q4H PRN Pain MILD(1-3)/Fever >100.5/MOSLEY Al Hydrox/Mg Hydrox/Simethicone 30 ml 07/08/21 20:32 Alum-Mag Hydroxide-Simethicone 505-005-37xq/5ml Oral Liqd 30 Ml PO Q4H PRN Indigestion Enoxaparin Sodium 40 mg 07/09/21 22:00 07/09/21 21:38 Enoxaparin 40 Mg/0.4 Ml Inj SUB-Q 40 mg QDAY@2200 PANCHO Administration Protocol Famotidine 20 mg 07/10/21 10:00 07/10/21 09:24 Famotidine 20 Mg Tab PO 20 mg BID PANCHO Administration Folic Acid 1 mg 07/08/21 21:00 07/10/21 09:24 Folic Acid 1 Mg Tab PO 1 mg QDAY PANCHO Administration Sodium Chloride 1,000 mls @ 75 mls/hr 07/08/21 20:45 07/10/21 14:25 Nacl 0.9% 1000 Ml IV 75 mls/hr DIRECT PANCHO Administration Azithromycin 500 mg in 250 mls @ 250 mls/hr 07/09/21 10:00 07/10/21 09:34 Zithromax/Ns IV 07/12/21 10:59 250 mls/hr Q24H PANCHO Administration Protocol Ceftriaxone Sodium 2 gm in 100 mls @ 200 mls/hr 07/09/21 10:00 07/10/21 09:34 Rocephin/Ns 2 Gm/100 Ml IV 07/12/21 10:29 200 mls/hr Q24H PANCHO Administration Protocol Ibuprofen 600 mg 07/08/21 20:36 Ibuprofen 600 Mg Tab PO Q6H PRN Pain, Mild (1-3) Magnesium Hydroxide 30 ml 07/08/21 20:32 Magnesium Hydroxide (Mom) Oral Liqd Udc PO Q4H PRN Constipation Metoclopramide HCl 10 mg 07/08/21 20:32 Metoclopramide 10 Mg/2 Ml Inj IV Q6H PRN Nausea And Vomiting Morphine Sulfate 2 mg 07/08/21 20:32 07/10/21 15:23 Morphine 2 Mg/1 Ml Inj IV 2 mg Q4H PRN Administration Pain, Moderate (4-6) Morphine Sulfate 4 mg 07/08/21 20:32 07/09/21 21:37 Morphine 4 Mg/1 Ml Inj IV 4 mg Q4H PRN Administration Pain , Severe (7-10) Multivitamins 1 each 07/09/21 10:00 07/10/21 09:24 Multivitamins ,Therapeutic Tab PO 1 each QDAY PANCHO Administration Naloxone HCl 0.1 mg 07/08/21 20:32 Naloxone 0.4 Mg/1 Ml Inj IV Q2MIN PRN Res Rate </= 8 or 02 SAT < 92% Ondansetron HCl 4 mg 07/08/21 20:36 Ondansetron 4 Mg/2 Ml Inj IV Q8H PRN Nausea And Vomiting Oxycodone/Acetaminophen 1 tab 07/08/21 20:32 Oxycodone /Acetaminophen 5-325mg Tab PO Q6H PRN Pain, Moderate (4-6) Senna 8.6 mg 07/08/21 20:32 07/09/21 21:28 Sennosides 8.6 Mg Tab PO 8.6 mg Q12HR PRN Administration Constipation Sodium Chloride 10 ml 07/08/21 22:00 07/10/21 09:25 Sodium Chloride 0.9% 10 Ml Flush Syringe IV 10 ml BID PANCHO Administration Sodium Chloride 10 ml 07/08/21 20:36 Sodium Chloride 0.9% 10 Ml Flush Syringe IV PRN PRN LINE FLUSH Nutrition/Malnutrition Assess - Dietary Evaluation Nutrition/Malnutrition Findings: Nutrition Notes Start: 07/10/21 15:54 Freq: Status: Active Protocol: Document 07/10/21 15:54 JAYESH (Rec: 07/10/21 16:18 JAYESH [id number]) Nutrition Notes 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 Current Diet Regular Diet (since B 07/08). Labs/Tests 07/09: BUN 4, Cr 0.7, Glu 103, Tbilli 2.4. Pertinent Medications 07/10: Folic acid, multivitamin, others nutritionally unremarkable. Height 6 ft 2 in Weight 93 kg [place] Body Weight (kg) 86.36 BMI 26.3 Weight Status Overweight Subjective/Other Information RD consult for Skin risk assessment. Percent of energy/protein needs met: Prescribed Regular Diet provides for energy/protein needs (2,289 Kcal/89 g) during LOS. Burn Absent Trauma Absent GI Symptoms None Food Allergy No Skin Integrity/Comment Clear, warm, dry. Current % PO Good (75-100%) #1 Nutrition Diagnosis No nutrition diagnosis at this time Comments: Pt shows no sign of concern for skin risk at the time. Is patient on ventilator? No Is Patient Ambulatory and/or Out of Bed Yes REE-([place]-St. Jeor-ambulatory/OOB) [ 2528.175 NUTR.[id number]] Kcal/Kg value to use for calculation 25 Approximate Energy Requirements Using 2325 kcal/Kg Calculation Used for Recommendations Kcal/kg Additional Notes Protein: 1.2-1.5 g/Kg; 103-129 g/day (from IBW+ anemia). Nutrition Intervention Change Diet Order: Continue Regular Diet. Goal #1 Maintain body weight within +/ -3% of current BWt during LOS. Goal #2 Reach and maintain acceptable chemistry lab values during LOS. Follow-Up By: 07/18/21 Additional Comments Continue monitoring food tolerance, %PO intake of meals , Hydration, and BM.
[2021-07-10] MEDS: MORPHINE 4 MG/1 ML INJ IV PRN (22:07)
[2021-07-10] MEDS: ENOXAPARIN 40 MG/0.4 ML INJ SUB-Q SCH (22:07)
[2021-07-11] MEDS: SODIUM CHLORIDE 0.9% 1000 ML 1,000 ML IV SCH (08:14)
[2021-07-11] MEDS: MORPHINE 2 MG/1 ML INJ IV PRN (08:15)
--- NOTE | 2021-07-11 08:33 | Discharge Summary ---
Providers - Providers Date of Admission: 07/10/21 09:27 Date of discharge: 07/11/21 Attending physician: ABIODUN GAY Primary care physician: PRE K TEACHER Hospitalization Condition: Good Hospital course: [place] PCR test is negative; No COVID-19 infection -- atypical chest pain Current Visit: Yes Status: Acute CT of the chest donenegative for pulmonary embolism Pain management as needed -- Acute sickle cell crisis Current Visit: Yes Status: Acute Continue IV hydration Oxygen titrate O2 sats to more than 90% Pain medications, IV fluids and supportive care Reticulocyte count 9.7 --PUI/COVID-19 test negative Current Visit: Yes Status: Acute [place] PCR test negative --Atypical pneumonia[RLL pneumonia on CTA] Current Visit: Yes Status: Acute Continue empiric antibiotics Supportive care with 2 L NC oxygen and IV fluids COVID-19 test is negative --Leukocytosis (leucocytosis) Current Visit: Yes Status: Acute Probably due to pneumonia, treat the underlying cause Follow cultures --Sickle cell anemia; Current Visit: Yes Status: Acute Monitor H&H, transfuse PRBC as needed Disposition: 30 STILL A PATIENT Final Discharge Diagnosis (Prints w/discharge instructions): COVID-19 negative. Right lower lobe pneumonia. Leukocytosis. History of sickle cell anemia. Acute sickle cell crisis Time spent for discharge: 35 minutes Core Measure Documentation - Palliative Care Palliative Care/ Comfort Measures: Not Applicable - Core Measures Any of the following diagnoses?: none Exam - Constitutional Vitals: Temp Pulse Resp BP Pulse Ox 99.1 F 87 20 117/69 94 07/11/21 04:44 07/11/21 04:44 07/11/21 08:15 07/11/21 04:44 07/11/21 04:44 Plan Activity: no restrictions Diet: regular Additional Instructions: If you have worsening symptoms contact MD or go to the nearest emergency room. Advised to follow-up with primary care physician in 1 week Follow up with: PRIMARY CARE, [Primary Care Provider] - 3-5 Days Prescriptions: cefUROXime [Ceftin] 2 tab PO Q12H #16 tablet Famotidine [Pepcid] 20 mg PO BID #20 tablet Azithromycin [Zithromax TAB] 500 mg PO QDAY #4 tablet
[2021-07-11] MEDS: FAMOTIDINE 20 MG TAB PO SCH (09:18)
[2021-07-11] MEDS: FOLIC ACID 1 MG TAB PO SCH (09:18)
[2021-07-11] MEDS: MULTIVITAMINS ,THERAPEUTIC TAB PO SCH (09:18)
[2021-07-11] MEDS: cefTRIAXone/NS 2 GM/100 ML 2 GM/100 ML BAG IV SCH (09:21)
[2021-07-11] MEDS: AZITHROMYCIN/NS 500 MG/250 ML 500 MG/250 ML BAG IV SCH (10:06)
[2021-07-11 12:02] VITALS: BP 121/68
--- NOTE | 2021-07-11 13:09 | Vascular Lab Report ---
DUPLEX DOPPLER LOWER EXTREMITY VEINS, BILATERAL INDICATION / CLINICAL INFORMATION: Elevated D-dimers/evaluate for DVT. History of acute sickle cell c risis, anemia. TECHNIQUE: Duplex doppler imaging was performed through the veins of both lower extremities using cristofer ous compression and other maneuvers. COMPARISON: None available. FINDINGS: RIGHT COMMON FEMORAL VEIN: Negative. RIGHT FEMORAL VEIN: Negative. RIGHT POPLITEAL VEIN: Negative. RIGHT CALF VEINS: Negative. LEFT COMMON FEMORAL VEIN: Negative. LEFT FEMORAL VEIN: Negative. LEFT POPLITEAL VEIN: Negative. LEFT CALF VEINS: Negative. ADDITIONAL FINDINGS: None. IMPRESSION: 1. No sonographic evidence for DVT in either lower extremity. Signer Name: Damon Patterson MD Signed: 07/11/2021 1:05 PM Workstation Name: [email or web address]
--- NOTE | 2021-07-11 18:50 | Electrocardiograph Report ---
[facility] Test Date: 2021-07-08 Test Time: 15:45:14 Pat Name: LUL PUENTE Department: Room: A389 Gender: M Biometrician: MARNIE : 1990 Requested By: IHLDA RODRIGUES Order Number: [id number] Reading MD: Ewelina Monique Measurements Intervals [place] Rate: 68 P: 40 PA: 138 QRS: 54 QRSD: 164 T: 6 QT: 447 QTc: 477 Interpretive Statements Sinus rhythm Right bundle branch block No previous ECG available for comparison Electronically Signed On 07-11-2021 18:50:08 EDT by Ewelina Monique
== END 2021-07-11 15:53 | disposition home or self-care (01) | DRG 811 ==
LOC: ED 14:36 → 3A 20:01 → OBSVTOIN 07-10 09:27
PROVIDERS: ADMIT Internal Medicine Geriatric Medicine; ATTEND Internal Medicine
DX: D57.00 Hb-SS disease with crisis, unspecified (principal); J18.9 Pneumonia, unspecified organism; R07.9 Chest pain, unspecified; Z20.822 Contact with and (suspected) exposure to COVID-19; D72.829 Elevated white blood cell count, unspecified; D57.1 Sickle-cell disease without crisis
CPT/HCPCS: 36415; 71045; 71275; 80048; 80053; 80076; 82140; 82550; 83036; 84484; 85025; 85045; 85379; 85610; 87040; 93005; 93970; 94760; G0378; J0456; J0696; J1170; J1650; J2270; J2405; J7030; J7120; Q9967; U0003

== ENCOUNTER 2021-08-01 21:37 | Emergency (ER) | payer SELFPAY ==
[2021-08-01 21:40] VITALS: BP 138/85
[2021-08-01] MEDS ORDERED: ONDANSETRON 4 MG ODT TAB PO ONE (23:23)
--- NOTE | 2021-08-01 23:50 | Emergency Department Report ---
ED Abdominal Pain HPI - General Chief Complaint: Abdominal Pain Stated Complaint: ABDOMINAL PAIN Time Seen by Provider: 08/01/21 23:19 Source: patient Mode of arrival: Ambulatory Limitations: No Limitations - History of Present Illness Initial Comments: Patient is a 31-year-old male who presents for generalized abdominal pain the past 2 weeks. Patient states he was diagnosed with pneumonia 2 weeks ago has completed all antibiotics however abdominal pain and cramping started approximately 2 weeks ago. Is been no fevers no chills. There is intermittent diarrhea. Patient denies other history. MD Complaint: abdominal pain - Related Data Previous Rx's Medication Instructions Recorded Last Taken Type Folic Acid [Folvite] 1 mg PO QDAY #30 tablet 01/02/14 07/08/21 Rx Ibuprofen [Motrin 800 MG tab] 800 mg PO Q8HR PRN #30 tablet 02/11/17 07/08/21 Rx Azithromycin [Zithromax TAB] 500 mg PO QDAY #4 tablet 07/11/21 Unknown Rx Famotidine [Pepcid] 20 mg PO BID #20 tablet 07/11/21 Unknown Rx HYDROcodone/APAP 5-325 [[place] 1 each PO Q6HR PRN #12 tablet 07/11/21 Unknown Rx 5-325 mg TAB] cefUROXime [Ceftin] 2 tab PO Q12H #16 tablet 07/11/21 Unknown Rx Docusate Sodium [Colace] 100 mg PO BID #60 capsule 08/02/21 Unknown Rx polyethylene glycoL 3350 [Miralax 17 gm PO BID PRN #14 packet 08/02/21 Unknown Rx 3350] Allergies Allergy/AdvReac Type Severity Reaction Status Date / Time No Known Allergies Allergy Unverified 01/02/14 08:21 ED Review of Systems ROS: Stated complaint: ABDOMINAL PAIN Other details as noted in HPI Constitutional: denies: chills, fever Eyes: denies: eye pain, eye discharge, vision change ENT: denies: ear pain, throat pain Respiratory: denies: cough, shortness of breath, wheezing Cardiovascular: denies: chest pain, palpitations Endocrine: no symptoms reported Gastrointestinal: denies: abdominal pain, nausea, vomiting, diarrhea Genitourinary: denies: urgency, dysuria Musculoskeletal: denies: back pain, joint swelling, arthralgia Skin: denies: rash, lesions Neurological: denies: headache, weakness, paresthesias Psychiatric: denies: anxiety, depression ED Past Medical Hx - Past Medical History Previous Medical History?: Yes Hx Sickle Cell Disease: Yes Hx HIV: No - Surgical History Past Surgical History?: No - Social History Smoking Status: Never Smoker - Medications Home Medications: Home Medications Medication Instructions Recorded Confirmed Last Taken Type Folic Acid [Folvite] 1 mg PO QDAY #30 tablet 01/02/14 07/09/21 07/08/21 Rx Ibuprofen [Motrin 800 MG tab] 800 mg PO Q8HR PRN #30 tablet 02/11/17 07/09/21 07/08/21 Rx Azithromycin [Zithromax TAB] 500 mg PO QDAY #4 tablet 07/11/21 Unknown Rx Famotidine [Pepcid] 20 mg PO BID #20 tablet 07/11/21 Unknown Rx HYDROcodone/APAP 5-325 [[place] 1 each PO Q6HR PRN #12 tablet 07/11/21 Unknown Rx 5-325 mg TAB] cefUROXime [Ceftin] 2 tab PO Q12H #16 tablet 07/11/21 Unknown Rx Docusate Sodium [Colace] 100 mg PO BID #60 capsule 08/02/21 Unknown Rx polyethylene glycoL 3350 [Miralax 17 gm PO BID PRN #14 packet 08/02/21 Unknown Rx 3350] ED Physical Exam - General Limitations: No Limitations General appearance: alert, in no apparent distress - Head Head exam: Present: atraumatic, normocephalic - Eye Eye exam: Present: normal appearance, EOMI Pupils: Present: normal accommodation - ENT ENT exam: Present: mucous membranes moist - Neck Neck exam: Present: normal inspection, full ROM. Absent: tenderness - Respiratory Respiratory exam: Present: normal lung sounds bilaterally. Absent: respiratory distress, wheezes, stridor - Cardiovascular Cardiovascular Exam: Present: regular rate, normal rhythm, normal heart sounds. Absent: systolic murmur, diastolic murmur, rubs, gallop - GI/Abdominal GI/Abdominal exam: Present: soft, normal bowel sounds. Absent: distended, tenderness, guarding, rebound, rigid, bruit, hernia - Expanded GI/Abdominal Exam Expanded GI/Abdominal exam: Absent: psoas sign, obturator sign, heel tap sign, Polanco's sign, Rovsing's sign, tenderness at Mcburney's Point, ascites - Rectal Rectal exam: Present: deferred, normal inspection - Extremities Exam Extremities exam: Present: normal inspection, full ROM, normal capillary refill. Absent: tenderness - Back Exam Back exam: Present: normal inspection, full ROM. Absent: tenderness, CVA tenderness (R), CVA tenderness (L) - Neurological Exam Neurological exam: Present: alert, oriented X3, CN II-XII intact, normal gait - Psychiatric Psychiatric exam: Present: normal affect, normal mood - Skin Skin exam: Present: warm, dry, intact, normal color. Absent: rash ED Course Vital Signs 08/01/21 21:39 Temperature 98.5 F Pulse Rate 73 Respiratory 14 Rate Blood Pressure 138/85 O2 Sat by Pulse 97 Oximetry ED Medical Decision Making - Lab Data Result diagrams: 08/01/21 23:42 08/01/21 23:42 Labs 08/01/21 08/01/21 23:42 23:42 WBC 9.1 RBC 3.55 L Hgb 11.0 L Hct 32.9 L MCV 93 MCH 31 MCHC 33 RDW 20.7 H Plt Count 381 Lymph % (Auto) 26.7 [place] % (Auto) 10.2 H Eos % (Auto) 5.1 H Baso % (Auto) 0.9 Lymph # (Auto) 2.4 [place] # (Auto) 0.9 H Eos # (Auto) 0.5 H Baso # (Auto) 0.1 Seg Neutrophils % 57.1 Seg Neutrophils # 5.2 Sodium 138 Potassium 4.8 Chloride 101.2 Carbon Dioxide 26 Anion Gap 16 BUN 7 L Creatinine 0.8 Estimated GFR > 60 BUN/Creatinine Ratio 9 Glucose 93 Calcium 9.7 Total Bilirubin 3.20 H AST 25 ALT 13 Alkaline Phosphatase 83 Total Protein 7.6 Albumin 4.4 Albumin/Globulin Ratio 1.4 Lipase 27 - Radiology Data Radiology results: report reviewed, image reviewed ABDOMEN 2 VIEWS INDICATION / CLINICAL INFORMATION: abd pain. COMPARISON: None available. FINDINGS: TUBES / LINES: None. BOWEL GAS PATTERN: Bowel gas pattern is nonobstructive. Moderate colonic stool burden. FREE AIR / EXTRALUMINAL GAS: None seen. ADDITIONAL FINDINGS: No significant additional findings. CHEST: Visualized chest shows no significant abnormality. IMPRESSION: 1. No acute abnormality. 2. Moderate colonic stool burden, may reflect constipation. Signer Name: Noam Oliver MD Signed: 08/02/2021 3:19 AM Workstation Name: [email or web address] - Medical Decision Making Labs noted as above. KUB consistent with constipation. Plan DC to home with prescriptions, hydrate as directed, return to emergency department if symptoms worsen. Patient verbalized agreement and understanding with discharge plan. Patient DC'd home in stable condition at this time. Critical care attestation.: If time is entered above; I have spent that time in minutes in the direct care of this critically ill patient, excluding procedure time. ED Disposition Clinical Impression: Constipation Qualifiers: Constipation type: unspecified constipation type Qualified Code(s): K59.00 - Constipation, unspecified Disposition: HOME / SELF CARE / HOMELESS Is pt being admited?: No Does the pt Need Aspirin: No Condition: Stable Instructions: Constipation, Adult, [id number], Probiotics, Rehydration, Adult Additional Instructions: Take medications as prescribed. Hydrate as directed. Follow-up with your doctor in 2 to 3 days, return to emergency should symptoms worsen. Prescriptions: Docusate Sodium [Colace] 100 mg PO BID #60 capsule polyethylene glycoL 3350 [Miralax 3350] 17 gm PO BID PRN #14 packet PRN Reason: Constipation Referrals: PRIMARY CAREMD [Primary Care Provider] - 3-5 Days SALIMA RUDOLPH MD [Staff Physician] - 3-5 Days Forms: Work/School Release Form(ED) Time of Disposition: 03:46
[2021-08-02 00:32] LABS: Alanine Aminotransferase 13 units/L (7-56); Albumin 4.4 g/dL (3.9-5); BUN/Creatinine Ratio 9; Blood Urea Nitrogen 7 mg/dL (9-20); Calcium 9.7 mg/dL (8.4-10.2); Hemolysis Index 20
[2021-08-02 00:42] LABS: Basophils # (Auto) 0.1 K/mm3 (0.0-0.1); Basophils % (Auto) 0.9 % (0.0-1.8); Eosinophils # (Auto) 0.5 K/mm3 (0.0-0.4); Eosinophils % (Auto) 5.1 % (0.0-4.3); Hematocrit 32.9 % (35.5-45.6); Lymphocytes # (Auto) 2.4 K/mm3 (1.2-5.4); Lymphocytes % (Auto) 26.7 % (13.4-35.0); Mean Corpuscular HGB Conc 33 % (32-34); Mean Corpuscular Volume 93 fl (84-94); Monocytes # (Auto) 0.9 K/mm3 (0.0-0.8); Monocytes % (Auto) 10.2 % (0.0-7.3); Platelet Count 381 K/mm3 (140-440); Red Blood Count 3.55 M/mm3 (3.65-5.03)
[2021-08-02 00:46] LABS: Red Cell Distribution Width 20.7 % (13.2-15.2)
--- NOTE | 2021-08-02 03:23 | XRay Report ---
ABDOMEN 2 VIEWS INDICATION / CLINICAL INFORMATION: abd pain. COMPARISON: None available. FINDINGS: TUBES / LINES: None. BOWEL GAS PATTERN: Bowel gas pattern is nonobstructive. Moderate colonic stool burden. FREE AIR / EXTRALUMINAL GAS: None seen. ADDITIONAL FINDINGS: No significant additional findings. CHEST: Visualized chest shows no significant abnormality. IMPRESSION: 1. No acute abnormality. 2. Moderate colonic stool burden, may reflect constipation. Signer Name: Noam Oliver MD Signed: 08/02/2021 3:19 AM Workstation Name: [id number]
== END 2021-08-02 04:00 | disposition home or self-care (01) ==
LOC: ED 21:37
DX: K59.00 Constipation, unspecified (principal)
CPT/HCPCS: 36415; 74018; 80053; 83690; 85025; 99283; J3490; Q0162